=== PATIENT | male | born 1995 | race Hispanic/Latino ===

== ENCOUNTER 2019-01-18 11:24 | Emergency (ER) | payer SELFPAY ==
[2019-01-18] MEDS ORDERED: Adacel (T-DAP) 0.5 ML SYRINGE ONE (11:34)
[2019-01-18] MEDS ORDERED: Lidocaine 1% w/Epinephrine 1:100K 20 ML VIAL ONE (11:53)
[2019-01-18] MEDS ORDERED: Bacitracin Zinc 1 Packet ONE (12:11)
== END 2019-01-18 12:14 | disposition home or self-care (01) ==
LOC: MADERS 11:24
DX: S01.112A Laceration without foreign body of left eyelid and periocular area, initial encounter (principal); F17.200 Nicotine dependence, unspecified, uncomplicated; W22.8XXA Striking against or struck by other objects, initial encounter
CPT/HCPCS: 12013; 90471; 90715; J2001